=== PATIENT | male | born 1950 | race Caucasian/White ===

== ENCOUNTER 2018-10-09 06:49 | Day surgery (SDC) | payer MEDICARE, OTHER ==
[~2018-10-09 06:49] MED LIST: Lactated Ringers 1,000 ML IV SCH; Lidocaine 1%/Sod Bicarbonate in NS 8.4% 1 ML Syringe IDERM PRN; Sodium Chloride 0.9% 10 ML Syringe FLUSH PRN
[2018-10-09] MEDS ORDERED: Propofol 200 MG/20 ML SDV ONE (07:16)
[2018-10-09] MEDS ORDERED: Lidocaine 1% 4 ML ONE (07:16)
[2018-10-09] MEDS ORDERED: Midazolam 1 MG/ML 2 ML SDV ONE (07:17)
[2018-10-09] MEDS ORDERED: fentaNYL 100 MCG/2 ML SDV ONE (07:17)
--- NOTE | 2018-10-09 07:30 | PCM.PREANE ---
Preanesthetic Assessment - Procedure Proposed Procedure: diag egd, diag colonoscopy - Anesthesia/Transfusion/Family Hx Anesthesia History: Prior Anesthesia Without Reaction Family History of Anesthesia Reaction: No Transfusion History: No Prior Transfusion(s) - Review of Systems General: No Symptoms Pulmonary: No Symptoms Cardiovascular: No Symptoms Gastrointestinal: No Symptoms Neurological: No Symptoms Other: Reports: Anxiety - Physical Assessment NPO Status Date: 10/09/18 NPO Status Time: 04:30 (prep) O2 Sat by Pulse Oximetry: 97 Respiratory Rate: 16 Vital Signs: Last Vital Signs Temp 97.6 F 10/09/18 07:00 Pulse 67 10/09/18 07:00 Resp 16 10/09/18 07:00 BP 124/83 10/09/18 07:00 Pulse Ox 97 10/09/18 07:00 Height: 5 ft 11 in Weight: 95.073 kg ASA Class: 2 Mental Status: Alert & Oriented x3 Airway Class: Mallampati = 1 Dentition: Reports: Broken Tooth/Teeth, Missing Tooth/Teeth Thyro-Mental Finger Breadths: 3 Mouth Opening Finger Breadths: 3 ROM/Head Extension: Full Lungs: Clear to Auscultation, Normal Respiratory Effort Cardiovascular: Regular Rate, Regular Rhythm - Allergies Allergies/Adverse Reactions: Allergies Allergy/AdvReac Type Severity Reaction Status Date / Time No Known Allergies Allergy Verified 10/06/18 10:26 - Blood Blood Available: No - Acknowledgements Anesthesia Type Planned: MAC Pt an Appropriate Candidate for the Planned Anesthesia: Yes Alternatives and Risks of Anesthesia Discussed w Pt/Guardian: Yes Pt/Guardian Understands and Agrees with Anesthesia Plan: Yes PreAnesthesia Questionnaire HEENT History: Reports: Impaired Vision Cardiovascular History: Reports: High Cholesterol, Hypertension, Stents Respiratory History: Reports: SOB (overexertion) Gastrointestinal History: Reports: GERD, Other (See Below) Other Gastrointestinal History: abdominal discomfort, adenoma of colon Genitourinary History: Reports: BPH, Renal Calculus [employer] History: Reports: None Musculoskeletal History: Reports: None Neurological History: Reports: None Psychiatric History: Reports: Anxiety Endocrine/Metabolic History: Reports: Other (See Below) Other Endocrine/Metabolic History: hot flashes Hematologic History: Reports: None Immunologic History: Reports: None Oncologic (Cancer) History: Reports: None Dermatologic History: Reports: None - Past Surgical History Head Surgeries/Procedures: Reports: None HEENT Surgical History: Reports: Naso-Sinus Surgery, Tonsillectomy Cardiovascular Surgical History: Reports: Other (See Below) Other Cardiovascular Surgeries/Procedures: 4 stents placed Respiratory Surgical History: Reports: None GI Surgical History: Reports: Cholecystectomy, Colonoscopy Female Surgical History: Reports: None Male Surgical History: Reports: None Endocrine Surgical History: Reports: None Neurological Surgical History: Reports: None Musculoskeletal Surgical History: Reports: None Oncologic Surgical History: Reports: None Dermatological Surgical History: Reports: None - SUBSTANCE USE Smoking Status *Q: Former Smoker Tobacco Use Within Last Twelve Months: No Second Hand Smoke Exposure: No Days Per Week of Alcohol Use: 0 Recreational Drug Use History: No - HOME MEDS Home Medications: Home Meds Aspirin [Adult Low Dose Aspirin EC] 81 mg PO DAILY 07/19/15 [History] Nitroglycerin [Nitrostat] 0.4 mg SL ASDIRECTED PRN 07/19/15 [History] Omeprazole 20 mg PO DAILY 07/19/15 [History] atorvaSTATin [Lipitor] 40 mg PO DAILY 07/19/15 [History] Mae/Cell/Lipas/Malt/Prt/Lac/in [Digestive Enzymes Capsule] 220 mg PO DAILY 10/06 [History] Ascorbic Acid [Vitamin C] 500 mg PO DAILY 10/06/18 [History] Calcium Carbonate [Calcium] 500 mg PO DAILY 10/06/18 [History] Cartilage/Collagen/Bor/Hyalur [Joint Health Tablet] 1 tab PO DAILY 10/06/18 [ History] Clopidogrel Bisulfate [Clopidogrel] 75 mg PO DAILY 10/06/18 [History] Escitalopram [Lexapro] 10 mg PO DAILY 10/06/18 [History] Lisinopril 10 mg PO DAILY 10/06/18 [History] Multivitamin [Poly-Vitamin] 1 tab PO DAILY 10/06/18 [History] Tamsulosin HCl 0.4 mg PO DAILY 10/06/18 [History] Vitamin B Complex [B Complex] 1 tab PO DAILY 10/06/18 [History] - CURRENT (IN HOUSE) MEDS Current Meds: Current Medications Lactated Ringer's (Ringers, Lactated) 1,000 mls @ 125 mls/hr IV ASDIRECTED PATSY Stop: 10/09/18 23:00 Lidocaine/Sodium Bicarbonate (Buffered Lidocaine 1% In Ns 8.4%) 0.25 ml IDERM ONETIME PRN PRN Reason: Prior to IV Start Stop: 10/09/18 18:00 Sodium Chloride (Saline Flush) 10 ml FLUSH ASDIRECTED PRN PRN Reason: Keep Vein Open Stop: 10/09/18 18:00 Discontinued Medications Fentanyl (Sublimaze) Confirm Administered Dose 100 mcg .ROUTE .STK-MED ONE Stop: 10/09/18 07:18 Lactated Ringer's (Ringers, Lactated) 1,000 mls @ 125 mls/hr IV ASDIRECTED PATSY Stop: 09/27/18 23:00 Lidocaine HCl (Xylocaine-Mpf 1%) Confirm Administered Dose 4 mls @ as directed .ROUTE .STK-MED ONE Stop: 10/09/18 07:17 Lidocaine/Sodium Bicarbonate (Buffered Lidocaine 1% In Ns 8.4%) 0.25 ml IDERM ONETIME PRN PRN Reason: Prior to IV Start Stop: 09/27/18 18:00 Midazolam HCl (Versed 1 Mg/Ml) Confirm Administered Dose 2 mg .ROUTE .STK-MED ONE Stop: 10/09/18 07:18 Propofol (Diprivan 20 Ml) Confirm Administered Dose 400 mg .ROUTE .STK-MED ONE Stop: 10/09/18 07:17 Sodium Chloride (Saline Flush) 10 ml FLUSH ASDIRECTED PRN PRN Reason: Keep Vein Open Stop: 09/27/18 18:00
--- NOTE | 2018-10-09 08:45 | PCM48HPAN ---
Post Anesthesia Note - EVALUATION WITHIN 48HRS OF ANESTHETIC Vital Signs in Normal Range: Yes Patient Participated in Evaluation: Yes Respiratory Function Stable: Yes Airway Patent: Yes Cardiovascular Function Stable: Yes Hydration Status Stable: Yes Pain Control Satisfactory: Yes Nausea and Vomiting Control Satisfactory: Yes Mental Status Recovered: Yes Pulse Rate: 69 SaO2: 94 (with oxygen at 2 l) Resp Rate: 16 Temperature: 98.6 F Blood Pressure: 104/72
[2018-10-09 09:34] VITALS: BP 117/77
--- NOTE | 2018-10-09 13:47 | OR ---
DATE OF OPERATION: 10/09/2018 SURGEON: Evgeny Niño MD PREOPERATIVE DIAGNOSIS: 1. History of colon polyps. 2. Gastroesophageal reflux disease. POSTOPERATIVE DIAGNOSIS: 1. History of colon polyps. 2. Gastroesophageal reflux disease. OPERATION PERFORMED: 1. Esophagogastroduodenoscopy with biopsies. 2. Colonoscopy with multiple polypectomies. 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 This was a short-segment Wu's, less than 3 cm. The remainder of his upper endoscopy was unremarkable. Colonoscopy findings were multiple polyps, which were diminutive concentrated in the cecum and transverse colon; melanosis coli; external hemorrhoid. PATHOLOGY FOR THE EGD: 1. Duodenum. 2. Antrum. 3. Body of the stomach. 4. Fundus of the stomach. 5. GE junction. 6. Distal esophagus. PATHOLOGY FOR THE COLON: 1. Cecal polyps. 2. Hepatic flexure polyps. 3. Transverse colon polyp, all removed with biopsy forceps. ESTIMATED BLOOD LOSS: Minimal. COMPLICATIONS: None. ANESTHESIA: Monitored anesthesia. DISPOSITION: Stable at the end of the procedure. INDICATION: The patient is a 68-year-old male with a history of colon polyps and a long history of gastroesophageal reflux disease. He has never had an upper endoscopy. He is a former smoker and drinker with a longstanding history of reflux. He also had a colonoscopy several years ago, which resulted in 13 polyps being removed. He did not have a followup exam. This was done in another hospital and I do not have the pathology results for that exam. He was offered a followup colonoscopy as well as diagnostic EGD. He was fully informed of the major risks, benefits, and alternatives. These include, but are not limited to, perforation of the GI tract, bleeding, recurrent surgery, aspiration pneumonia, and many others. He gave informed consent. DESCRIPTION OF PROCEDURE: The patient was brought to the gastro suite and placed in the left lateral decubitus position. A bite block was placed. Monitored anesthesia was administered. I introduced the endoscope into the proximal esophagus and advanced it with gentle forward pressure to the GE junction. I identified the salmon-pink mucosa in the distal esophagus. I continued my exam progressing through the pylorus. I flexed the scope into the 4th portion of the duodenum. I took 4 random biopsies of the duodenum. I found no ulcerations. The scope was withdrawn into the stomach. I thoroughly examined the mucosa of the stomach finding no mucosal lesions. I retroflexed the GE junction and found no sliding hiatal hernia. I biopsied the antrum, body, and fundus checking for H. pylori. I then withdrew the scope into the esophagus and biopsied in 4 quadrants 6 pieces of the GE junction to check for dysplasia and Wu esophagus. The distal esophagus was also biopsied. I then passed the scope back into the stomach and evacuated all the air. The scope was withdrawn once again into the esophagus. The entirety of the mucosa of the esophagus was examined. No lesions were identified. The scope was withdrawn. I then turned my attention to the colonoscopy. A digital rectal exam was performed. I identified an external hemorrhoid. No prolapsing internal hemorrhoids were identified. The digital rectal exam was otherwise unremarkable. I introduced the colonoscope into the rectum with copious lubrication. This was advanced with gentle forward pressure to the cecum, keeping the lumen in view at all times. The cecum was documented photographically and preserved for the record. I identified 2 sheets of small diminutive polyps, which appeared to be adenomas in the cecum. Multiple biopsies were obtained from this location. I attempted to use a snare to remove that entire segment of mucosa, but unfortunately, I was not able to grasp the tissue. So, to the best of my ability, I removed all of the polyps that I could identify until the tissue was somewhat macerated. I then moved on to take additional polyps along the way. A thorough, careful examination of the colon revealed additional polyps at the hepatic flexure. There were 2 polyps identified. These were also diminutive polyps and removed in their entirety with a biopsy forceps and a transverse colon polyp removed again in its entirety with a biopsy forceps. The remainder of the colon exam was unremarkable other than melanosis coli. A thorough, careful examination lasting well more than 10 minutes revealed no adenocarcinoma, no strictures, and the pathology as written above. At the end of the procedure, the scope was withdrawn. He was awakened from anesthesia and moved to recovery in stable condition. PLAN: I will see him in the office in the next 2 weeks to discuss results of his pathology. He will likely need surveillance of his Wu's and will certainly need another colonoscopy in the next 3 to 6 months. MMODAL /[id number]
== END 2018-10-09 09:50 | disposition home or self-care (01) ==
LOC: JD.SDS 06:49
PROVIDERS: ATTEND Surgery
DX: D12.0 Benign neoplasm of cecum (principal); D12.3 Benign neoplasm of transverse colon; K63.89 Other specified diseases of intestine; K21.9 Gastro-esophageal reflux disease without esophagitis; E78.00 Pure hypercholesterolemia, unspecified; I25.10 Atherosclerotic heart disease of native coronary artery without angina pectoris; Z86.010 Personal history of colon polyps; Z87.891 Personal history of nicotine dependence; Z79.82 Long term (current) use of aspirin; Z79.899 Other long term (current) drug therapy; Z95.5 Presence of coronary angioplasty implant and graft
CPT/HCPCS: 43239; 45380; 45385; 93005; J2001; J2250; J2704; J3010; J7120; 00813

== ENCOUNTER → 2022-09-16 | Day surgery (SDC) | payer MEDICARE, OTHER ==
[~2022-09-16] MED LIST changes: +Propofol 200 MG/20 ML SDV ONE; +Sodium Chloride 0.9% 10 ML Syringe FLUSH SCH; +fentaNYL 100 MCG/2 ML SDV ONE
[2022-09-16 09:24] VITALS: BP 106/64; PULSE 62
== END | disposition home or self-care (01) ==
LOC: JD.SDS 06:40
PROVIDERS: ATTEND Surgery
DX: K31.89 Other diseases of stomach and duodenum (principal); K21.9 Gastro-esophageal reflux disease without esophagitis; K44.9 Diaphragmatic hernia without obstruction or gangrene; F41.9 Anxiety disorder, unspecified; N40.0 Benign prostatic hyperplasia without lower urinary tract symptoms; I25.10 Atherosclerotic heart disease of native coronary artery without angina pectoris; E78.00 Pure hypercholesterolemia, unspecified; I10 Essential (primary) hypertension; Z79.899 Other long term (current) drug therapy; Z90.49 Acquired absence of other specified parts of digestive tract; Z87.891 Personal history of nicotine dependence
CPT/HCPCS: 43239; J2704; J3010; J7120; 00731